=== PATIENT | male | born 1990 | race Caucasian/White ===

== ENCOUNTER 2019-09-28 17:41 | Emergency (ER) | payer MEDICAID, SELFPAY ==
[2019-09-28 18:03] VITALS: BP 132/77; PULSE 91; RESP 16; TEMP 37.2; O2SAT 100
[2019-09-28 18:07] VITALS: PULSE 79
--- NOTE | 2019-09-28 18:20 | ED.GENADULT ---
HPI - General Adult General Chief complaint: Unspecified Stated complaint: withdraw symptoms Time Seen by Provider: 09/28/19 18:13 Source: patient Mode of arrival: ambulatory Limitations: no limitations History of Present Illness HPI narrative: A 28 y/o male presents to the ED with c/o Hydrocodone withdrawal. Pt states that he has been using Hydrocodone 30mg for the last 10 years. He notes that he stopped taking the Hydrocodone yesterday and has not had any since. Pt reports body aches and diarrhea, but denies vomiting and diaphoresis. He smokes cigarettes daily, but denies any EtOH or any other drug use. Pt adds that he has tried to detox before and had similar symptoms. complaint: Hydrocodone withdrawal Onset (ago): day(s) (1) Severity: similar to prior episodes Pain Consistency: constant Associated symptoms: other (Body aches, diarrhea) Related Data Allergies Allergy/AdvReac Type Severity Reaction Status Date / Time clonidine Allergy Severe Other Verified 03/10/19 02:47 sumatriptan AdvReac Intermediate Body aches Verified 03/10/19 02:50 tramadol AdvReac Intermediate Dizziness Verified 03/10/19 02:50 ketorolac AdvReac Nausea and Verified 09/28/19 18:08 Vomiting Review of Systems Review of Systems: All systems reviewed & are unremarkable except as noted in HPI and below Constitutional: Constitutional: Reports body ache(s) Cardiovascular: Cardiovascular: Denies other (Diaphoresis) Gastrointestinal: Gastrointestinal: Reports diarrhea and Denies vomiting PMFSH Past Medical History Medical History (Updated 09/28/19 @ 18:36 by Gonsalo Trent MD) Nose fracture Surgical History Surgical History (Updated 09/28/19 @ 18:27 by Zee Farrar) No pertinent past surgical history Social History Social History (Updated 09/28/19 @ 18:27 by Zee Farrar) Smoking status: Current every day smoker Tobacco type: cigarettes Second hand tobacco smoke exposure: Yes Alcohol intake: never Substance use: former Substance use type: painkillers Other substance usage details: Hydrocodone Last use: 09/27/19 Gender identity (if verbalized by the patient): Male Exam Const: General: healthy appearing, no acute distress and well developed Nutritional Appearance: well nourished Orientation/consciousness: patient oriented x3 (alert) and Other orientation findings (Alert) Limitations: no limitations HENMT: Head: normocephalic and atraumatic Ears: external ears normal General nose exam: No nasal discharge present and no epistaxis Face and sinus: face symmetric Mouth: Yes lip normal, Yes tongue normal and Yes moist mucous membranes Throat: other (No exudate, no erythema) Eyes: Conjunctivae: conjunctivae normal Sclera: sclerae normal EOM: EOMs intact bilaterally Neck: Neck: full ROM, no lymphadenopathy and supple Thyroid: thyroid normal Chest: Chest palpation & inspection: no tenderness Resp: Effort & Inspection: normal respiratory effort Auscultation: clear to auscultation bilaterally, no rales, no rhonchi, no wheezes and other (breath sounds equal) Cardio: Rate: regular rate Rhythm: regular rhythm Heart sounds: no gallops and no murmurs GI: Inspection: non-distended GI Palp: No abdominal tenderness and Yes Soft to palpation Auscultation: other (bowel sounds present) : General: Yes no CVA tenderness Back/Spine/Pelvis: Back: no CVA tenderness Thoracic/Lumbar Spine: thoracic and lumbar spine normal to inspection Skin: General skin exam: normal color, no rashes or lesions noted and other (Tattoos, no diaphoresis) Neuro: General: patient oriented x3 (alert), moves all extremities and no focal motor deficits Cranial nerves: Yes facial symmetry Speech: normal speech Motor exam (neuro): Motor abnormalities not present Extrem: General: normal to inspection, full ROM and no pedal edema Psych: Affect: normal affect Course Course Emergency Course: d/w pt his hc dose was not particularly large
[2019-09-28 18:47] VITALS: BP 118/75; PULSE 78; RESP 16; O2SAT 100
== END 2019-09-28 18:48 | disposition home or self-care (01) ==
PROVIDERS: Emergency Provider Emergency Medicine
DX: F11.23 Opioid dependence with withdrawal (principal); F17.210 Nicotine dependence, cigarettes, uncomplicated
CPT/HCPCS: 99283

== ENCOUNTER 2021-10-29 13:15 | Emergency (ER) | payer SELFPAY ==
[2021-10-29 13:39] VITALS: BP 110/64; PULSE 68; RESP 18; TEMP 36.7; O2SAT 100
--- NOTE | 2021-10-29 16:49 | ED.EAR ---
HPI - Ear Problem General Chief complaint: Ear Stated complaint: Hearing Loss to right ear Time Seen by Provider: 10/29/21 15:47 Source: patient History of Present Illness HPI Narrative: Patient presents with loss of hearing in his right ear. Reports sometimes his ears get impacted with earwax and it causes some hearing loss and he needs assistance removing his earwax. Denies any pain or trauma to the area denies any vision changes denies any focal numbness or weakness Related Data Allergies Allergy/AdvReac Type Severity Reaction Status Date / Time clonidine Allergy Hypotension Verified 10/29/21 15:46 sumatriptan [From Imitrex] Allergy Back Pain Verified 10/29/21 15:46 tramadol Allergy Itching Verified 10/29/21 15:46 Review of Systems Review of Systems: CONSTITUTIONAL: Denies fever, chills, or sweats. EYES: Denies visual changes, redness, or discharge. ENT: Denies rhinorrhea, congestion, sore throat, or otalgia. CARDIOVASCULAR: Denies chest pain, palpitations, or edema. RESPIRATORY: Denies cough or dyspnea. GASTROINTESTINAL: Denies abdominal pain, nausea, vomiting, or diarrhea. GENITOURINARY: Denies dysuria or hematuria. SKIN: Denies rash or itching. MUSCULOSKELETAL: Denies back pain, joint pain, or myalgia. NEUROLOGIC: Denies headache, numbness, dizziness, or weakness. PSYCHIATRIC: Denies anxiety or depression. All systems reviewed & are unremarkable except as noted in HPI and below Exam Narrative: GENERAL: Well-appearing, well-nourished, and in no acute distress. HEAD: Normocephalic, atraumatic. EYES: PERRLA and EOMI. ENT: Nares clear, no rhinorrhea or epistaxis. Mucous membranes moist. Right EAC with cerumen impaction left EAC clear TMs clear on the left unable to visualize TM on the right NECK: Supple. No masses. No JVD EXTREMITIES: Normal range of motion. No edema. SKIN: Warm, dry, no rash. NEURO: No focal deficits. Alert and oriented x3. PSYCH: Normal mood and affect. Course Reevaluation(s) Reevaluation #1: Patient reports feeling much improved is comfortable outpatient plan. Date: 10/29/21 Time: 16:50 Vital Signs Vital signs: Vital Signs Temperature 36.7 C 10/29/21 13:39 Pulse Rate 68 10/29/21 13:39 Respiratory Rate 18 10/29/21 13:39 Blood Pressure 110/64 10/29/21 13:39 Pulse Oximetry 100 10/29/21 13:39 Temperature 36.7 C 10/29/21 13:39 Pulse Rate 61 10/29/21 16:58 Respiratory Rate 16 10/29/21 16:58 Blood Pressure 109/60 10/29/21 16:58 Pulse Oximetry 99 10/29/21 16:58 Medical Decision Making MDM Narrative Medical decision making narrative: H&P as above, vss, pt looks clinically well, exam with right ear cerumen impaction, labs/img considered, symptomatic relief available as needed, patient treated with Debrox and irrigation on reevaluation pt continues to looks clinically well reports large improvement in symptoms after earwax removed. Suspect cerumen impaction, dns severe sepsis, severe dehydration, neurological hearing loss plan to tx/monitor as op w/ pcm f/u findings/plan discussed with pt, pt agree/comfortable with plan, return precautions given Vital Signs Vital Signs: Vital Signs Temperature 36.7 C 10/29/21 13:39 Pulse Rate 68 10/29/21 13:39 Respiratory Rate 18 10/29/21 13:39 Blood Pressure 110/64 10/29/21 13:39 Pulse Oximetry 100 10/29/21 13:39 Temperature 36.7 C 10/29/21 13:39 Pulse Rate 61 10/29/21 16:58 Respiratory Rate 16 10/29/21 16:58 Blood Pressure 109/60 10/29/21 16:58 Pulse Oximetry 99 10/29/21 16:58 Discharge Plan Discharge Clinical Impression: Cerumen impaction Qualifiers: Laterality: right Qualified Code(s): H61.21 - Impacted cerumen, right ear Patient Disposition: Home, Self-Care Condition: Improved Instructions: Antibiotic Form Additional Instructions: Please return if your symptoms worsen or fail to improve. If you develop a fever, can not eat/drink anything or if you have any other conc
[2021-10-29 16:58] VITALS: BP 109/60; PULSE 61; RESP 16; O2SAT 99
== END 2021-10-29 16:58 | disposition home or self-care (01) ==
PROVIDERS: Emergency Provider Emergency Medicine; PCP Family Medicine
DX: H61.21 Impacted cerumen, right ear (principal)
CPT/HCPCS: 69209; 99282

== ENCOUNTER 2024-04-18 12:53 | Emergency (ER) | payer BC, MEDICAID, SELFPAY ==
[2024-04-18 13:07] VITALS: BP 110/69; PULSE 86; RESP 20; TEMP 36.7; O2SAT 100
--- NOTE | 2024-04-18 14:42 | ED.GENADULT ---
HPI - General Adult General Chief complaint: Unspecified Stated complaint: joint pain Time Seen by Provider: 04/18/24 14:41 Source: patient Mode of arrival: ambulatory Limitations: no limitations History of Present Illness HPI narrative: Patient presents with multiple complaints. He notes that he had labs drawn recently 04/13 prior to starting psych meds. He was told he can't start taking his psych meds due to these findings. Has a psychiatrist. States they showed Hepatitis and abnormal liver enzymes. Had a history of hepatitis as a baby and then another diagnosis of hepatitis later after a tattoo needle was shared/improperly cleaned. No abdominal swelling but occasionally experiences abdominal pain. States I can tell where my liver is because it hurts there as grabs LUQ. Also is concerned because he was recently treated for chlamydia (though doesn't recall when/where) but feels he might still have it since he does still experience dysuria. Ammenable to being tested for G/C/T as well as serum tests syphillis and HIV since his has been experiencing miscarriages and he wants to make sure things are ok from this perspective. Had also inquired about herpes testing; no active lesions but he states he tested positive awhile back. He states he has been frequently been urinating and at times he'll go but feel like he is incompleting voiding. Also having joint pain, particularly knee(s). Feels tired and weak. Has a PCP but his appointment was rescheduled and isn't for awhile now. Related Data Home Medications Medication Instructions Recorded Confirmed lamotrigine 25 mg tablet 25 mg PO DAILY 04/18/24 04/18/24 Allergies Allergy/AdvReac Type Severity Reaction Status Date / Time clonidine Allergy Hypotension Verified 04/18/24 16:58 sumatriptan [From Imitrex] Allergy Back Pain Verified 04/18/24 16:58 tramadol Allergy Itching Verified 04/18/24 16:58 ketorolac AdvReac Nausea and Verified 04/18/24 16:58 Vomiting PMFSH Past Medical History Medical History History of glaucoma History of hepatitis Nose fracture Surgical History Surgical History (System 11/09/21 @ 14:38 by Jacinta Aguayo) No pertinent past surgical history Social History Social History Social History: Smoking status: Current every day smoker Tobacco type: cigarettes Second hand tobacco smoke exposure: Yes Alcohol intake: never Substance use: former Substance use type: painkillers Other substance usage details: Hydrocodone Last use: 09/27/19 Living arrangements: with family Additional living arrangements comments: Gender identity (if verbalized by the patient): Male Exam Narrative: GENERAL: Thin/slight though well-nourished, and in no acute distress. HEAD: Normocephalic, atraumatic. EYES: Non injected, non icteric. Strabismus. ENT: Nares clear, no rhinorrhea or epistaxis. NECK: Supple. CHEST: Speaking in full sentences. No respiratory distress. HEART: Regular rate and rhythm. . ABDOMEN: Soft, nondistended. Non tender to palpation. No guarding. Not peritoneal. No ascites, caput medusa, spider angioma. EXTREMITIES: Normal range of motion. No lower extremity edema. SKIN: Warm, dry, no rash. Not jaundiced. NEURO: No focal deficits. Alert and oriented x3. PSYCH: Normal mood and affect. Course Vital Signs Vital signs: Vital Signs Temperature 98.0 F 04/18/24 13:07 Pulse Rate 86 04/18/24 13:07 Respiratory Rate 04/18/24 13:07 Blood Pressure 110/69 04/18/24 13:07 Pulse Oximetry 100 04/18/24 13:07 Oxygen Delivery Room Air 04/18/24 13:07 Temperature 97.7 F 04/18/24 17:16 Pulse Rate 57 L 04/18/24 18:20 Respiratory Rate 20 04/18/24 13:07 Blood Pressure 113/84 04/18/24 18:20 Pulse Oximetry 100 04/18/24 18:20 Oxygen Delivery Room Air 04/18/24
[2024-04-18 15:46] LABS: Add Urine Microscopic? YES; Appearance Urine Turbid (Clear); Bacteria Urine None Seen /hpf; Bilirubin Urine Negative (Negative); Blood Urine Negative (Negative); Color Urine Dark Yellow (Yellow); Glucose Urine UA Negative (Negative); Ketones Urine Trace mg/dL (Negative); Leukocyte Esterase Ur Negative LEU/UL (Negative); Mucus Urine Present /lpf; Need Manual Microscopic Reviewed; Nitrate Urine Negative (Negative); Non Pathogenic Casts 0-2; Protein Urine 1+ mg/dL (Negative); RBC Urine 0-2 /hpf (0-2); Specific Grav Ur 1.032 (1.001-1.035); Squamous Epithelial Cell Urine None Seen /hpf (Few); WBC Urine 0-5 /hpf (0-3); pH Urine 7.5 (5.0-9.0)
[2024-04-18 16:26] LABS: HIV 1/2 Ab P24 Ag Result Negative (Negative)
[2024-04-18 16:39] LABS: Trichomonas Vag PCR NOT DETECTED (NOT DETECTE)
[2024-04-18 16:45] LABS: Rapid Plasma Reagin Non-Reactive (NonReactive)
[2024-04-18 17:02] LABS: Chlamydia trachomatis NOT DETECTED (NOT DETECTE); Neisseria gonorrhoeae PCR NOT DETECTED (NOT DETECTE)
[2024-04-18 17:16] VITALS: BP 103/76; PULSE 55; TEMP 36.5; O2SAT 100
[2024-04-18 18:20] VITALS: BP 113/84; PULSE 57; O2SAT 100
[2024-04-20 23:08] LABS: HLA B27 NEGATIVE (NEGATIVE)
== END 2024-04-18 18:27 | disposition home or self-care (01) ==
PROVIDERS: Emergency Provider Student in an Organized Health Care Education/Training Program
DX: M02.362 Reiter's disease, left knee (principal); M02.361 Reiter's disease, right knee; N34.2 Other urethritis; B15.9 Hepatitis A without hepatic coma; B19.10 Unspecified viral hepatitis B without hepatic coma; F17.210 Nicotine dependence, cigarettes, uncomplicated
CPT/HCPCS: 36415; 81001; 86592; 86703; 86812; 87491; 87591; 87661; 99283; G0432